=== PATIENT | female | born 1985 ===

== ENCOUNTER 2017-09-22 21:15 | Inpatient (IN) | payer OTHER ==
[~2017-09-22] VITALS: Ht 154.9 cm; Wt 43.1 kg
[2017-09-22] MEDS ORDERED: ZANTAC 7575 MG (22:22)
[2017-09-22] MEDS ORDERED: DICY20TA (22:22)
[2017-10-18] MEDS ORDERED: FLAGYL500MG PO (18:18)
[2017-10-18] MEDS ORDERED: ZANTAC150 M3 PO (18:18)
[2017-10-18] MEDS ORDERED: CIPRO500 MG PO (18:18)
== END 2017-10-18 19:34 | disposition home or self-care (01) | DRG 385 ==
LOC: ER 21:15 → MEDJ 09-23 21:13 → SEC-K 09-23 21:13 → MEDJ 09-24 16:04
PROC: BU4CZZZ Ultrasonography of Uterus and Ovaries (ICD-10-PCS; 2017-09-23)
PROC: BW21Y0Z Computerized Tomography (CT Scan) of Abdomen and Pelvis using Other Contrast, Unenhanced and Enhanced (ICD-10-PCS; 2017-09-23)
PROC: 3E0336Z Introduction of Nutritional Substance into Peripheral Vein, Percutaneous Approach (ICD-10-PCS; principal; 2017-09-26)
PROC: 0W9J30Z Drainage of Pelvic Cavity with Drainage Device, Percutaneous Approach (ICD-10-PCS; 2017-09-30)
PROC: 0W9G30Z Drainage of Peritoneal Cavity with Drainage Device, Percutaneous Approach (ICD-10-PCS; 2017-09-30)
PROC: BW21Y0Z Computerized Tomography (CT Scan) of Abdomen and Pelvis using Other Contrast, Unenhanced and Enhanced (ICD-10-PCS; 2017-09-30)
PROC: 02HV33Z Insertion of Infusion Device into Superior Vena Cava, Percutaneous Approach (ICD-10-PCS; 2017-10-03)
PROC: BW21Y0Z Computerized Tomography (CT Scan) of Abdomen and Pelvis using Other Contrast, Unenhanced and Enhanced (ICD-10-PCS; 2017-10-07)
PROC: B54PZZZ Ultrasonography of Bilateral Upper Extremity Veins (ICD-10-PCS; 2017-10-07)
PROC: BW21Y0Z Computerized Tomography (CT Scan) of Abdomen and Pelvis using Other Contrast, Unenhanced and Enhanced (ICD-10-PCS; 2017-10-14)
PROC: 0WPGX0Z Removal of Drainage Device from Peritoneal Cavity, External Approach (ICD-10-PCS; 2017-10-15)
DX: K50.812 Crohn's disease of both small and large intestine with intestinal obstruction (principal); K65.1 Peritoneal abscess; A42.89 Other forms of actinomycosis; K50.814 Crohn's disease of both small and large intestine with abscess; E86.0 Dehydration; N20.0 Calculus of kidney; R31.29 Other microscopic hematuria; B95.2 Enterococcus as the cause of diseases classified elsewhere; B96.6 Bacteroides fragilis [B. fragilis] as the cause of diseases classified elsewhere; N92.0 Excessive and frequent menstruation with regular cycle